=== PATIENT | female | born 1990 | race Caucasian/White ===

== ENCOUNTER 2019-10-05 06:43 | Inpatient (IN) | payer OTHER ==
[~2019-10-05] VITALS: Ht 175.3 cm; Wt 95.5 kg
[~2019-10-05 06:43] MED LIST: AMOX125S7 PO; NORG1TAB70 PO; OXYC1TAB15 PO
[2019-10-05] MEDS ORDERED: IV NORMAL SALINE 1000ML BAG 1,000 ML IV ONE (07:00)
--- NOTE | 2019-10-05 07:54 | RAD ---
Exam: VENOUS LOWER EXTREMITY LEFT Indication: Reason: LLE pain/swelling / Spl. Instructions: / History: Technique: Color-flow and pulsed wave duplex ultrasound with compression of venous structures of the left lower extremity. Comparison: None Available. Findings: Duplex ultrasound with compression of the deep venous structures of the left lower extremity from the common femoral vein through the popliteal vein is negative for DVT. The posterior tibial and peroneal veins are segmentally visualized and patent where seen. Normal venous waveforms and augmentation are noted throughout. Impression: No evidence for DVT in the left lower extremity. Electronically signed by: Andi Hylton MD (10/05/2019 7:51 AM) [id number]
[2019-10-05 07:56] LABS: BASO # 0.1 x10^3/uL (0.0-0.2); BASO % 1 % (0-3); EOS # 0.1 x10^3/uL (0.0-0.7); EOS % 1 % (0-3); HEMATOCRIT 35.2 % (36.0-47.0); HEMOGLOBIN 11.8 g/dL (12.0-15.5); LYMPH # 2.5 x10^3/uL (1.0-4.8); LYMPH % 21 % (24-48); MEAN CORPUSCULAR HEMOGLOBIN 30 pg (25-35); MEAN CORPUSCULAR HGB CONC 33 g/dL (31-37); MEAN CORPUSCULAR VOLUME 88 fL (79-100); MONO # 0.6 x10^3/uL (0.0-1.1); MONO % 5 % (0-9); NEUT % 73 % (31-73); PLATELET COUNT 140 x10^3/uL (140-400); RED BLOOD COUNT 3.98 x10^6/uL (3.50-5.40); RED CELL DISTRIBUTION WIDTH 12.2 % (11.5-14.5); WHITE BLOOD COUNT 12.3 x10^3/uL (4.0-11.0)
[2019-10-05 08:07] LABS: CALCIUM 7.5 mg/dL (8.5-10.1); CREATININE 1.1 mg/dL (0.6-1.0); GFR 57.9; POTASSIUM 3.4 mmol/L (3.5-5.1)
--- NOTE | 2019-10-05 08:07 | PHYS DOC ---
Past Medical History Past Medical History: No Pertinent History Additional Past Surgical Histo: Left ACL repair Smoking Status: Never Smoker Alcohol Use: Occasionally Drug Use: None General Adult EDM: Chief Complaint: SHORTNESS OF BREATH HPI: HPI: Patient is a 29 year old female presents via EMS with report of sudden shortness of breath upon waking this morning. Reports she has noticed some dyspnea with exertion over the past few days. Patient reports some left knee swelling x 2-3 weeks which she attributes to aggravation of old injury. Reports history of ACL repair 15 years ago. Patient reports she did notice left calf swelling and pain yesterday. Patient reports she recently traveled to [place] (over the last weekend). Denies any fever or chills. Denies trauma. Denies . Patient does report feeling unwell with some aching chest discomfort. Patient reports she has a MRI scheduled to evaluate her knee in the next few days. Reports history of control use. Denies known recent exposure to COVID-19. Denies history or family history of PE/DVT. EMS reports upon their arrival, patient noted to be hypotensive- down to 70s systolic. EMS reports giving IVF bolus with interval improvement. Review of Systems: Review of Systems: Constitutional: Denies fever or chills Eyes: Denies redness or eye pain HENT: Denies nasal congestion or sore throat Respiratory: Denies cough; reports shortness of breath and dyspnea with exertion Cardiovascular: Reports chest pain; denies palpitations GI: Denies abdominal pain, nausea, or vomiting : Denies dysuria or hematuria Musculoskeletal: Denies back pain; reports left leg swelling and left knee pain Integument: Denies rash or skin lesions Neurologic: Denies headache, focal weakness or sensory changes Complete systems were reviewed and found to be within normal limits, except as documented in this note. Heart Score: HEART Score for Chest Pain: HEART Score for Chest Pain Response (Comments) Value History Moderately Suspicious 1 ECG Normal 0 Age < 45 0 Risk Factors No Risk Factors 0 Troponin >1-<3x Normal Limit 1 Total 2 Risk Factors: Risk Factors: DM, Current or recent (<one month) smoker, HTN, HLP, family history of CAD, obesity. Risk Scores: Score 0 - 3: 2.5% MACE over next 6 weeks - Discharge Home Score 4 - 6: 20.3% MACE over next 6 weeks - Admit for Clinical Observation Score 7 - 10: 72.7% MACE over next 6 weeks - Early Invasive Strategies Current Medications: Current Medications Medications (Trade) Dose Ordered Sig/Simon Start Time Stop Time Status Last Admin Dose Admin Sodium Chloride 1,000 ml @ 1,000 mls/hr 1X ONCE 10/05/19 07:00 10/05/19 07:59 DC 10/05/19 07:28 1,000 MLS/HR Allergies: Allergies: Allergies Coded Allergies Type Severity Reaction Last Updated Verified cephalexin Allergy Intermediate Hives 10/13/15 Yes Physical Exam: PE: Constitutional: Well developed, well nourished, no acute distress, non-toxic appearance HENT: Normocephalic, atraumatic Eyes: Conjunctiva normal, no discharge Neck: Normal range of motion, no tenderness, supple Lungs & Thorax: No respiratory distress, equal chest rise and fall Abdomen: Soft, no tenderness Skin: Warm, dry, no erythema, no rash Back: No tenderness, no CVA tenderness Extremities: No tenderness, ROM intact, 1+ edema to LLE, knee stable, no calf tenderness Neurologic: Alert and oriented X 3, no focal deficits noted Psychologic: Affect normal, judgment normal Current Patient Data: Labs: Laboratory Tests Test 10/05/19 07:20 White Blood Count 12.3 x10^3/uL (4.0-11.0) H Red Blood Count 3.98 x10^6/uL (3.50-5.40) Hemoglobin 11.8 g/dL (12.0-15.5) L Hematocrit 35.2 % (36.0-47.0) L Mean Corpuscular Volume 88 fL (79-100) Mean Corpuscular Hemoglobin 30 pg (25-35) Mean Corpuscular Hemoglobin Concent 33 g/dL (31-37) Red Cell Distribution Width 12.2 % (11.5-14.5) Platelet Count 140 x10^3/uL (140-400) Neutrophils (%) (Auto) 73 % (31-73) Lymphocytes (%) (Auto) 21 % (24-48) L Monocytes (%) (Auto) 5 % (0-9) Eosinophils (%) (Auto) 1 % (0-3) Basophils (%) (Auto) 1 % (0-3) Neutrophils # (Auto) 9.0 x10^3/uL (1.8-7.7) H Lymphocytes # (Auto) 2.5 x10^3/uL (1.0-4.8) Monocytes # (Auto) 0.6 x10^3/uL (0.0-1.1) Eosinophils # (Auto) 0.1 x10^3/uL (0.0-0.7) Basophils # (Auto) 0.1 x10^3/uL (0.0-0.2) Laboratory Tests 10/05/19 07:20 Vital Signs: Vital Signs Date Time Temp Pulse Resp B/P (MAP) Pulse Ox O2 Delivery O2 Flow Rate FiO2 10/05/19 06:54 98.5 68 18 99/53 (68) 94 Room Air 98.5 EKG: EKG: @0840 NSR at 83bpm, NO ST elevation, QRS 90ms, QT/QTc 384/452ms Radiology/Procedures: Radiology/Procedures: PROCEDURE: VENOUS LOWER EXTREMITY LEFT Indication: Reason: LLE pain/swelling / Spl. Instructions: / History: Technique: Color-flow and pulsed wave duplex ultrasound with compression of venous structures of the left lower extremity. Comparison: None Available. Findings: Duplex ultrasound with compression of the deep venous structures of the left lower extremity from the common femoral vein through the popliteal vein is negative for DVT. The posterior tibial and peroneal veins are segmentally visualized and patent where seen. Normal venous waveforms and augmentation are noted throughout. Impression: No evidence for DVT in the left lower extremity. Electronically signed by: Andi Hylton MD (10/05/2019 7:51 AM) [id number] PROCEDURE: CT ANGIOGRAPHY CHEST EXAM: CT angiography of the chest with intravenous contrast. HISTORY: Shortness of air. TECHNIQUE: Computed tomographic images of the chest were obtained following the administration of intravenous contrast according to angiography protocol. Multiplanar reformatting was performed and three dimensional maximum intensity projection images were obtained. *One or more of the following individualized dose reduction techniques were utilized for this examination: 1. Automated exposure control. 2. Adjustment of the mA and/or kV according to patient size. 3. Use of iterative reconstruction technique. COMPARISON: None. FINDINGS: There are right main and bilateral upper and lower lobe and right middle lobe pulmonary emboli. No saddle embolus is seen. There is no evidence of right heart strain. The heart is normal in size. The aorta is normal in caliber. There is no lymphadenopathy. There is no pneumothorax or pleural effusion. There is no infiltrate or suspicious pulmonary nodule. There is no acute finding involving the upper abdomen. There is no suspicious osseous lesion. IMPRESSION: Extensive bilateral pulmonary emboli. No saddle embolus or right heart strain is seen. Findings were discussed with Dr. Haley in the ED at 0900 hours on 10/05/2019. Course & Med Decision Making: Course & Med Decision Making Pertinent Labs and Imaging studies reviewed. (See chart for details) Patient presents via EMS with report of sudden shortness of air with history of recent travel to [place]. Patient also complaining of some chest discomfort. Patient immediately placed and negative pressure room. COVID precautions utilized. EKG stable. Labs obtained and posted to chart. Troponin slightly elevated. Aspirin provided. Lactic acid elevated. UA with signs of UTI. Empiric antibiotic initiated. Patient also complaining of left lower extremity swelling. Venous Doppler negative. CTA chest with bilateral PEs noted. Lovenox initiated. COVID testing pending. Patient requiring admission for further evaluation and treatment. Discussed with Dr. Mckeon (hospitalist) who is in agreement with admission. Discussed findings and plan with patient, who acknowledges understanding and agreement. COVID-19 CRITERIA: The patient was evaluated during the global COVID-19 pandemic, and that diagnosis was suspected/considered upon their initial presentation. Their evaluation, treatment and testing was consistent with current guidelines for patients who present with complaints or symptoms that may be related to COVID-19. Dragon Disclaimer: Dragon Disclaimer: This electronic medical record was generated, in whole or in part, using a voice recognition dictation system. Departure Departure Impression: Primary Impression: Pulmonary embolism Qualified Codes: I26.99 - Other pulmonary embolism without acute cor pulmonale Additional Impressions: Elevated troponin Hypomagnesemia Suspected COVID-19 virus infection Hx of hypotension Lactic acidosis Urinary tract infection Qualified Codes: N30.00 - Acute cystitis without hematuria Disposition: ADMITTED INPATIENT Admitting Physician: RADHA (Rafy) Condition: GUARDED Referrals: SARAH BEGUM (PCP) Justicifation of Admission Dx: Justifications for Admission: Justification of Admission Dx: Yes Comments: PE and Elevated troponin COVID-19 Assessment: COVID-19 Patient Risks: Age 65 or older: No Sign of co-morbidity: No Exp to person + for COVID: No Exp to PUI: No Travel from affected area: Yes Lower respiratory symptoms: Yes Fever: No PPE Use: Full PPE with N95 mask or PAPR: Yes Critical Care Time Critical care time was 30 minutes which includes time at bedside, spent in discussion of patient's care with specialists and/or family members, with interpretation of laboratory and/or radiological studies and is exclusive of procedures. PERC Rule for PE PERC Rule for PE PERC Rule for PE Response (Comments) Value Age > 50: No 0 HR > 100: No 0 Sa02 on room air <95%: Yes 1 Unilateral leg swelling: Yes 1 Hemoptysis: No 0 Recent surgery or trauma: No 0 Prior PE or DVT: No 0 Hormone use: Yes 1 Total 3 HALEY,PEDRO Botello DO Oct 05, 2019 08:07
[2019-10-05 08:14] LABS: ALBUMIN 2.4 g/dL (3.4-5.0); ALBUMIN/GLOBULIN RATIO 0.9 (1.0-1.7); MAGNESIUM 1.5 mg/dL (1.8-2.4); TOTAL BILIRUBIN 0.3 mg/dL (0.2-1.0)
[2019-10-05 08:20] LABS: CREATINE KINASE 27 U/L (26-192)
[2019-10-05 08:20] LABS: BILIRUBIN,URINE NEGATIVE (NEG); CLARITY,URINE CLEAR; COLOR,URINE AMBER; NITRITE,URINE POSITIVE (NEG); PH,URINE 5.5 (<5.0-8.0); PROTEIN,URINE NEGATIVE (NEG-TRACE); UROBILINOGEN,URINE 0.2 mg/dL (0.2 mg/dL)
[2019-10-05] MEDS ORDERED: IOHEXOL 350 MG/ML 100 ML VIAL. IV ONE (08:30)
[2019-10-05] MEDS ORDERED: CONTRAST GIVEN. MC PRN (08:30)
[2019-10-05] MEDS ORDERED: MAGNESIUM SULFATE 2GM 50 ML IV ONE (08:30)
[2019-10-05] MEDS ORDERED: ASPIRIN 325 MG TABLET PO ONE (08:30)
[2019-10-05 08:36] LABS: RBC,URINE 0 /HPF (0-2)
[2019-10-05 08:37] LABS: BACTERIA,URINE MANY /HPF (0-FEW); SQUAMOUS EPITHELIAL CELL,UR OCC /LPF
--- NOTE | 2019-10-05 09:13 | EKG ---
[facility] [address] [place] [address] Test Date: 2019-10-05 Test Time: 08:40:06 Pat Name: ADITHYA GEE Department: Room: Gender: F [employer] Driver: : 1990 Requested By: PEDRO HALEY Order Number: [id number] Reading MD: Alex Dwyer Measurements Intervals [place] Rate: 83 P: 51 [place]: 144 QRS: 71 QRSD: 90 T: 23 QT: 384 QTc: 452 Interpretive Statements SINUS RHYTHM Electronically Signed On 10-06-2019 16:38:46 CDT by Alex Dwyer
--- NOTE | 2019-10-05 09:16 | RAD ---
EXAM: CT angiography of the chest with intravenous contrast. HISTORY: Shortness of air. TECHNIQUE: Computed tomographic images of the chest were obtained following the administration of intravenous contrast according to angiography protocol. Multiplanar reformatting was performed and three dimensional maximum intensity projection images were obtained. *One or more of the following individualized dose reduction techniques were utilized for this examination: 1. Automated exposure control. 2. Adjustment of the mA and/or kV according to patient size. 3. Use of iterative reconstruction technique. COMPARISON: None. FINDINGS: There are right main and bilateral upper and lower lobe and right middle lobe pulmonary emboli. No saddle embolus is seen. There is no evidence of right heart strain. The heart is normal in size. The aorta is normal in caliber. There is no lymphadenopathy. There is no pneumothorax or pleural effusion. There is no infiltrate or suspicious pulmonary nodule. There is no acute finding involving the upper abdomen. There is no suspicious osseous lesion. IMPRESSION: Extensive bilateral pulmonary emboli. No saddle embolus or right heart strain is seen. Findings were discussed with Dr. Augustin in the ED at 0900 hours on 10/05/2019. FOR INTERNAL CODING PURPOSES RESULT CODE: (C) Electronically signed by: Jeanine Marshall MD (10/05/2019 9:13 AM) [id number]
[2019-10-05 09:21] LABS: LACTATE DEHYDROGENASE 151 U/L (81-234)
[2019-10-05] MEDS ORDERED: ONDANSETRON PF 4 MG/2 ML VIAL. IV PRN (09:30)
[2019-10-05] MEDS ORDERED: PIPERACILLIN/TAZOBACTAM 4.5 GM in IV NORMAL SALINE 100ML 100 ML IV ONE (09:30)
--- NOTE | 2019-10-05 10:59 | PDOC2 ---
KEEGAN ROOT GROUND SUPPORT AGENT 10/05/19 1058: CARDIAC CONSULT DATE OF CONSULT Date of Consult DATE: 10/05/19 TIME: 10:56 REASON FOR CONSULT Reason for Consult: Elevated trop, PE REFERRING PHYSICIAN Referring Physician: Dr. Mckeon SOURCE Source: Chart review, Patient HISTORY OF PRESENT ILLNESS HISTORY OF PRESENT ILLNESS This is a 29 yo female who presented secondary to shortness of breath and LLE edema. Troponin noted to be elevated, which prompted this consult. Patient traveled to [facility] over the weekend. On Wednesday, developed some shortness of breath. Progressively worsened. This morning, was significantly worse. Was so short of breath she was unable to stand. Called EMS. Also reports some swelling in her left knee for the last couple of weeks. This also progressively worsening and noted left calf to be swollen this morning. Has a history of ACL repair about 15 years ago. She denies any chest pain, palpitations, diaphoresis, or nausea/vomiting. PAST MEDICAL HISTORY Pulmonary: Asthma PAST SURGICAL HISTORY Past Surgical History: Tonsillectomy, Other (left ACL repair ) FAMILY HISTORY Family History: Diabetes SOCIAL HISTORY Smoke: No ALCOHOL: occassional Drugs: None Lives: Alone CURRENT MEDICATIONS CURRENT MEDICATIONS Current Medications Medications (Trade) Dose Ordered Sig/Simon Route PRN Reason Start Time Stop Time Status Last Admin Dose Admin Sodium Chloride 1,000 ml @ 1,000 mls/hr 1X ONCE IV 10/05/19 07:00 10/05/19 07:59 DC 10/05/19 07:28 Aspirin (Lyn Aspirin) 325 mg 1X ONCE PO 10/05/19 08:30 10/05/19 08:31 DC 10/05/19 08:41 Magnesium Sulfate 50 ml @ 25 mls/hr 1X ONCE IV 10/05/19 08:30 10/05/19 10:29 DC 10/05/19 09:08 Iohexol (Omnipaque 350 Mg/ml) 90 ml 1X ONCE IV 10/05/19 08:30 10/05/19 08:31 DC 10/05/19 08:53 Piperacillin Sod/ Tazobactam Sod 4.5 gm/Sodium Chloride 100 ml @ 200 mls/hr 1X ONCE IV 10/05/19 09:30 10/05/19 09:59 DC 10/05/19 09:21 Enoxaparin Sodium (Lovenox 100mg Syringe) 100 mg 1X ONCE SQ 10/05/19 09:15 10/05/19 09:16 DC 10/05/19 09:39 ALLERGIES ALLERGIES: Coded Allergies: cephalexin (Verified Allergy, Intermediate, Hives, 10/05/19) Has tolerated amoxicillin ROS Review of System 14 point ROS conducted with pertinent positives note above in HPI PHYSICAL EXAM General: Alert, Oriented X3, Cooperative, No acute distress HEENT: Atraumatic, Mucous membr. moist/pink Lungs: Clear to auscultation Heart: Regular rate, Normal S1, Normal S2 Abdomen: Soft, No tenderness Extremities: No edema, Normal pulses Skin: No breakdown, No significant lesion Neuro: Normal speech, Sensation intact Psych/Mental Status: Mental status NL, Mood NL MUSCULOSKELETAL: No joint tenderness VITALS/I&O VITALS/I&O: Vital Signs Date Time Temp Pulse Resp B/P (MAP) Pulse Ox O2 Delivery O2 Flow Rate FiO2 10/05/19 08:17 79 16 101/61 (74) 95 Room Air 10/05/19 06:54 98.5 98.5 LABS Lab: Laboratory Tests Test 10/05/19 07:20 10/05/19 07:54 10/05/19 08:00 10/05/19 08:10 White Blood Count 12.3 x10^3/uL (4.0-11.0) H Red Blood Count 3.98 x10^6/uL (3.50-5.40) Hemoglobin 11.8 g/dL (12.0-15.5) L Hematocrit 35.2 % (36.0-47.0) L Mean Corpuscular Volume 88 fL (79-100) Mean Corpuscular Hemoglobin 30 pg (25-35) Mean Corpuscular Hemoglobin Concent 33 g/dL (31-37) Red Cell Distribution Width 12.2 % (11.5-14.5) Platelet Count 140 x10^3/uL (140-400) Neutrophils (%) (Auto) 73 % (31-73) Lymphocytes (%) (Auto) 21 % (24-48) L Monocytes (%) (Auto) 5 % (0-9) Eosinophils (%) (Auto) 1 % (0-3) Basophils (%) (Auto) 1 % (0-3) Neutrophils # (Auto) 9.0 x10^3/uL (1.8-7.7) H Lymphocytes # (Auto) 2.5 x10^3/uL (1.0-4.8) Monocytes # (Auto) 0.6 x10^3/uL (0.0-1.1) Eosinophils # (Auto) 0.1 x10^3/uL (0.0-0.7) Basophils # (Auto) 0.1 x10^3/uL (0.0-0.2) Sodium Level 141 mmol/L (136-145) Potassium Level 3.4 mmol/L (3.5-5.1) L Chloride Level 106 mmol/L (98-107) Carbon Dioxide Level 27 mmol/L (21-32) Anion Gap 8 (6-14) Blood Urea Nitrogen 11 mg/dL (7-20) Creatinine 1.1 mg/dL (0.6-1.0) H Estimated GFR (Cockcroft-Gault) 57.9 BUN/Creatinine Ratio 10 (6-20) Glucose Level 118 mg/dL (70-99) H Calcium Level 7.5 mg/dL (8.5-10.1) L Magnesium Level 1.5 mg/dL (1.8-2.4) L Ferritin 83 ng/mL (8-252) Total Bilirubin 0.3 mg/dL (0.2-1.0) Aspartate Amino Transferase (AST) 13 U/L (15-37) L Alanine Aminotransferase (ALT) 17 U/L (14-59) Alkaline Phosphatase 59 U/L (46-116) Lactate Dehydrogenase 151 U/L (81-234) Creatine Kinase 27 U/L (26-192) Creatine Kinase MB (Mass) 0.5 ng/mL (0.0-3.6) Creatine Kinase MB Relative Index % (0-4) Troponin I Quantitative 0.100 ng/mL (0.000-0.055) NM-Vum-A-Type Natriuretic Peptide 76 pg/mL (0-124) Total Protein 5.0 g/dL (6.4-8.2) L Albumin 2.4 g/dL (3.4-5.0) L Albumin/Globulin Ratio 0.9 (1.0-1.7) L Urine Collection Type Unknown Urine Color Blank Urine Clarity Clear Urine pH 5.5 (<5.0-8.0) Urine Specific [place] 1.025 (1.000-1.030) Urine Protein Negative mg/dL (NEG-TRACE) Urine Glucose (UA) Negative mg/dL (NEG) Urine Ketones (Stick) Negative mg/dL (NEG) Urine Blood Negative (NEG) Urine Nitrite Positive (NEG) Urine Bilirubin Negative (NEG) Urine Urobilinogen Dipstick 0.2 mg/dL (0.2 mg/dL) Urine Leukocyte Esterase Negative (NEG) Urine RBC 0 /HPF (0-2) Urine WBC 5-10 /HPF (0-4) Urine Squamous Epithelial Cells Occ /LPF Urine Bacteria Many /HPF (0-FEW) Lactic Acid Level 2.1 mmol/L (0.4-2.0) H POC Urine HCG, Qualitative Hcg negative (Negative) Laboratory Tests 10/05/19 07:20 Laboratory Tests 10/05/19 07:20 ASSESSMENT/PLAN ASSESSMENT/PLAN 1. Dyspnea in setting of PE; CTA with extensive bilateral PE. Received treatment dose Lovenox 2. Mild troponin elevation; Most probably type II, demand ischemia in setting of above. 3. Hypokalemia, hypomagnesemia; replaced 4. Leukocytosis, lactic acidosis 5. UTI 6. Oral contraceptive use Recommendations Trend troponin Lipids, TSH Echo to assess LV systolic function, RV dilation AC as per pulm Discontinue oral contraceptives. Consider hypercoagulable workup. Supportive care MELISSA SOLITARIO MD 10/05/19 1732: CARDIAC CONSULT ASSESSMENT/PLAN ASSESSMENT/PLAN Patient seen and evaluated Agree with our podiatric assistant assessment and plan. Bilateral PE. Anticoagulation as per the pulmonary service. Will check an echo to assess right and left side function. Discontinue oral contraceptives. Outpatient hypercoagulability work-up as per pulmonary Hypokalemia and hypomagnesemia being replaced. Minimally elevated troponin peak of 0.462 in the setting of severe bilateral PEs. Continue treatment as above. Echo to check LV function and wall motion Thank you for allowing us to participate in the care of your patient. KEEGAN ROOT APRN Oct 05, 2019 10:58 MELISSA SOLITARIO MD Oct 05, 2019 17:32
[2019-10-05 11:41] LABS: CHOLESTEROL/HDL RATIO 3.4
--- NOTE | 2019-10-05 13:16 | CONS ---
DATE OF CONSULTATION: PULMONARY CONSULTATION ATTENDING PHYSICIAN: Glo Mckeon MD REASON FOR CONSULTATION: Bilateral pulmonary embolism. HISTORY OF PRESENT ILLNESS: The patient is a 29-year-old female who has no history of tobacco use or asthma. She was doing very well. She recently arrived from [place]. It was a nonstop flight. She came on Wednesday. She lives on the third floor of her apartment. She started experiencing exertional dyspnea when she was walking up 3 flights of stairs. She had no chest pain, no syncopal episode. No headaches. No nausea, vomiting or diarrhea. The patient had some left knee swelling about 2-3 weeks ago, which she attributed to aggravation of an old injury. She had ACL repair 15 years ago. She said when she was in [place], she did not go to any casinos. She stayed with her friend and they ordered food online as well. She was evaluated in the ER. Initially, she was thought as COVID suspect. She was kept in the COVID isolation; however, venous Doppler was performed, which did not reveal any DVT, but CTA chest was performed. I have reviewed the CT chest. She has extensive bilateral pulmonary emboli. They were seen in the right main pulmonary artery, and bilateral upper and lower lobes and right middle lobe. There was no evidence of right heart strain. There was no evidence of pulmonary infarction. When she arrived, she was initially hypotensive, blood pressure 95 systolic, but did respond to IV fluids. She is currently on room air and saturations are 97%. She has no family history of thromboembolic disease. She is on control pills. PAST MEDICAL HISTORY: Essentially unremarkable. PAST SURGICAL HISTORY: Left ACL repair. SOCIAL HISTORY: Nonsmoker, nonalcoholic. ALLERGIES: CEPHALEXIN. MEDICATIONS: Reviewed as listed in the MRAD. REVIEW OF SYSTEMS: Twelve-point system obtained. Pertinent positives discussed in my present illness, otherwise noncontributory. All systems that were negative were reviewed as well. FAMILY HISTORY: No history of hypercoagulable state. PHYSICAL EXAMINATION: VITAL SIGNS: Reviewed, they are stable. Pulse ox 97% on room air. NECK: Supple. HEENT: Visual exam performed due to COVID pandemia. SKIN: No obvious skin rash. EXTREMITIES: No obvious leg edema. LABORATORY DATA: Reviewed. White cell count 12.3, hemoglobin 11.8 and platelets are 140. Her TSH 4.8. Her troponin level 0.1. IMPRESSION: 1. Acute pulmonary embolism in a patient whose risk factor is the use of control pill. She also had a nonstop flight from [place] to [facility]. However, this seems to be the less likely risk factor then compared to her use of control pills. No family history of thromboembolic disease. She is hemodynamically stable at present. As such, she does not need any thrombolytic treatment. Venous Dopplers are negative. RECOMMENDATIONS: 1. The patient received Lovenox in the Emergency Room. She could be resumed with Eliquis tomorrow. 2. If she remains hemodynamically stable, she could even be discharged in the next 24 hours. 3. She will need minimum of 3 months of anticoagulation. 4. She needs to discontinue control pills. 5. We will repeat a CTA chest in 6-8 weeks. 6. We would recommend obtaining hypercoagulable panel as an outpatient. Discussed with ER physician. We will follow along with you. CRISPIN MORALES MD DR: TATY/rich JOB#: [id number] / [id number] [place]
[2019-10-05] MEDS ORDERED: POTASSIUM CHLORIDE 20 MEQ TABLET.ER. PO ONE (14:00)
[2019-10-05 14:23] VITALS: BP 104/65
--- NOTE | 2019-10-05 15:39 | PDOC1 ---
History and Physical Date of Admission Date of Admission DATE: 10/05/19 TIME: 15:27 Source Source: Chart review, Patient History of Present Illness History of Present Illness MS. Britt is a 29 year old female presents via EMS with report of sudden shortness of breath upon waking this morning. EMS noted she was hypotensive on arrival in 70's Reports she has noticed some dyspnea with exertion over the past few days. Patient reports some left knee swelling x 2-3 weeks which she attributes to aggravation of old injury. Her left calm was very tight and swollen last night and this AM and this is imrpvoed after lovenox given. Reports history of ACL repair 15 years ago and recurrent pain. She recently traveled to [place] (over the last weekend), did not venture out, stayed at a private residence, did not go out for food. Denies any fever or chills. Denies trauma. Denies . Patient does report feeling unwell with some aching chest discomfort. Patient reports she has a MRI scheduled to evaluate her knee in the next few days. Reports history of control use. Past Medical History Pulmonary: Asthma Psych: No pertinent hx Musculoskeletal: Osteoarthritis (left knee, post ligament tear) Rheumatologic: No pertinent hx ENT: No pertinent hx Renal/: No pertinent hx Endocrine: No pertinent hx Dermatology: No pertinent hx Past Surgical History Past Surgical History: Tonsillectomy, Other (left ACL repair ) Family History Family History: Diabetes Social History Smoke: No ALCOHOL: occassional Drugs: None Current Problem List Problem List Problems Medical Problems: (1) Elevated troponin Status: Acute (2) Hx of hypotension Status: Acute (3) Hypomagnesemia Status: Acute (4) Lactic acidosis Status: Acute (5) Pulmonary embolism Status: Acute (6) Suspected COVID-19 virus infection Status: Acute (7) Urinary tract infection Status: Acute Current Medications Current Medications Current Medications Sodium Chloride 1,000 ml @ 1,000 mls/hr 1X ONCE IV Last administered on 10/05/19at 07:28; Start 10/05/19 at 07:00; Stop 10/05/19 at 07:59; Status DC Aspirin (Lyn Aspirin) 325 mg 1X ONCE PO Last administered on 10/05/19at 08:41; Start 10/05/19 at 08:30; Stop 10/05/19 at 08:31; Status DC Magnesium Sulfate 50 ml @ 25 mls/hr 1X ONCE IV Last administered on 10/05/19at 09:08; Start 10/05/19 at 08:30; Stop 10/05/19 at 10:29; Status DC Iohexol (Omnipaque 350 Mg/ml) 90 ml 1X ONCE IV Last administered on 10/05/19at 08:53; Start 10/05/19 at 08:30; Stop 10/05/19 at 08:31; Status DC Info (CONTRAST GIVEN -- Rx MONITORING) 1 each PRN DAILY PRN MC SEE COMMENTS; Start 10/05/19 at 08:30; Stop 10/07/19 at 08:29 Piperacillin Sod/ Tazobactam Sod 4.5 gm/Sodium Chloride 100 ml @ 200 mls/hr 1X ONCE IV Last administered on 10/05/19at 09:21; Start 10/05/19 at 09:30; Stop 10/05/19 at 09:59; Status DC Enoxaparin Sodium (Lovenox 100mg Syringe) 100 mg 1X ONCE SQ Last administered on 10/05/19at 09:39; Start 10/05/19 at 09:15; Stop 10/05/19 at 09:16; Status DC Ondansetron HCl (Zofran) 4 mg PRN Q8HRS PRN IV NAUSEA/VOMITING; Start 10/05/19 at 09:30; Stop 10/06/19 at 09:29 Potassium Chloride (Klor-Con) 40 meq 1X ONCE PO Last administered on 10/05/19at 14:43; Start 10/05/19 at 14:00; Stop 10/05/19 at 14:01; Status DC Active Scripts Active Reported Ortho Tri-Cyclen (Norgestimate-Ethinyl Estradiol) 1 Each Tablet 1 Tab PO DAILY Allergies Allergies: Coded Allergies: cephalexin (Verified Allergy, Intermediate, Hives, 10/05/19) Has tolerated amoxicillin ROS General: YES: Chills, Fatigue PSYCHOLOGICAL ROS: No: Anxiety, Behavioral Disorder, Concentration difficultie, Decreased libido, Depression, Disorientation, Hallucinations, Hostility, Irritablity, Memory difficulties, Mood Swings, Obsessive thoughts, Physical abuse, Sexual abuse, Sleep disturbances, Suicidal ideation, Other Eyes: No Blurry vision, No Decreased vision, No Double vision, No Dry eyes, No Excessive tearing, No Eye Pain, No Itchy Eyes, No Loss of vision, No Photophobia, No Scotomata, No Uses contacts, No Uses glasses, No Other HEENT: No: Heacaches, Visual Changes, Hearing change, Nasal congestion, Nasal discharge, Oral lesions, Sinus pain, Sore Throat, Epistaxis, Sneezing, Snoring, Tinnitus, Vertigo, Vocal changes, Other Respiratory: YES: Shortness of breath, Tachypnea; No: Cough, Hemoptysis, Orthopnea, Pleuritic Pain, Sputum Changes, Stridor, Wheezing, Other Cardiovascular: yes Edema (to left calf this AM); No Chest Pain, No Palpitations, No Orthopnea, No Paroxysmal Noc. Dyspnea, No Lt Headedness, No Other Gastrointestinal: No Nausea, No Vomiting, No Abdominal Pain, No Diarrhea, No Constipation, No Melena, No Hematochezia, No Other Genitourinary: No Dysuria, No Frequency, No Incontinence, No Hematuria, No Retention, No Discharge, No Urgency, No Pain, No Flank Pain, No Other, No , No , No , No , No , No , No Musculoskeletal: Yes Joint Stiffness; No Gait Disturbance, No Joint Pain, No Joint Swelling, No Muscle Pain, No Muscular Weakness, No Pain In:, No Swelling In:, No Other Neurological: No Behavorial Changes, No Bowel/Bladder ControlChng, No Confusion, No Dizziness, No Gait Disturbance, No Headaches, No Impaired Coord/balance, No Memory Loss, No Numbness/Tingling, No Seizures, No Speech Problems, No Tremors, No Visual Changes, No Weakness, No Other Skin: No Dry Skin, No Eczema, No Hair Changes, No Lumps, No Mole Changes, No Mottling, No Nail Changes, No Pruritus, No Rash, No Skin Lesion Changes, No Other, No Acne Physical Exam General: Alert, Oriented X3, Cooperative, mild distress HEENT: PERRLA, Mucous membr. moist/pink Heart: no gallops, no murmurs Abdomen: Normal bowel sounds, Soft Extremities: No clubbing, Other (left knee painful, poor ROM, prior surg from jogging) Skin: No rashes Neuro: Normal speech Psych/Mental Status: Mental status NL, Mood NL Vitals Vitals Vital Signs Date Time Temp Pulse Resp B/P (MAP) Pulse Ox O2 Delivery O2 Flow Rate FiO2 6/11/20 14:23 98.1 88 16 104/65 (78) 100 Room Air 98.1 Labs Labs Laboratory Tests Test 10/05/19 07:20 10/05/19 07:54 10/05/19 08:00 10/05/19 08:10 White Blood Count 12.3 x10^3/uL (4.0-11.0) Red Blood Count 3.98 x10^6/uL (3.50-5.40) Hemoglobin 11.8 g/dL (12.0-15.5) Hematocrit 35.2 % (36.0-47.0) Mean Corpuscular Volume 88 fL (79-100) Mean Corpuscular Hemoglobin 30 pg (25-35) Mean Corpuscular Hemoglobin Concent 33 g/dL (31-37) Red Cell Distribution Width 12.2 % (11.5-14.5) Platelet Count 140 x10^3/uL (140-400) Neutrophils (%) (Auto) 73 % (31-73) Lymphocytes (%) (Auto) 21 % (24-48) Monocytes (%) (Auto) 5 % (0-9) Eosinophils (%) (Auto) 1 % (0-3) Basophils (%) (Auto) 1 % (0-3) Neutrophils # (Auto) 9.0 x10^3/uL (1.8-7.7) Lymphocytes # (Auto) 2.5 x10^3/uL (1.0-4.8) Monocytes # (Auto) 0.6 x10^3/uL (0.0-1.1) Eosinophils # (Auto) 0.1 x10^3/uL (0.0-0.7) Basophils # (Auto) 0.1 x10^3/uL (0.0-0.2) Sodium Level 141 mmol/L (136-145) Potassium Level 3.4 mmol/L (3.5-5.1) Chloride Level 106 mmol/L (98-107) Carbon Dioxide Level 27 mmol/L (21-32) Anion Gap 8 (6-14) Blood Urea Nitrogen 11 mg/dL (7-20) Creatinine 1.1 mg/dL (0.6-1.0) Estimated GFR (Cockcroft-Gault) 57.9 BUN/Creatinine Ratio 10 (6-20) Glucose Level 118 mg/dL (70-99) Calcium Level 7.5 mg/dL (8.5-10.1) Magnesium Level 1.5 mg/dL (1.8-2.4) Ferritin 83 ng/mL (8-252) Total Bilirubin 0.3 mg/dL (0.2-1.0) Aspartate Amino Transf (AST/SGOT) 13 U/L (15-37) Alanine Aminotransferase (ALT/SGPT) 17 U/L (14-59) Alkaline Phosphatase 59 U/L (46-116) Lactate Dehydrogenase 151 U/L (81-234) Creatine Kinase 27 U/L (26-192) Creatine Kinase MB (Mass) 0.5 ng/mL (0.0-3.6) Creatine Kinase MB Relative Index % (0-4) Troponin I Quantitative 0.100 ng/mL (0.000-0.055) YZ-Wuz-P-Type Natriuretic Peptide 76 pg/mL (0-124) Total Protein 5.0 g/dL (6.4-8.2) Albumin 2.4 g/dL (3.4-5.0) Albumin/Globulin Ratio 0.9 (1.0-1.7) Triglycerides Level 217 mg/dL (0-150) Cholesterol Level 138 mg/dL (0-200) LDL Cholesterol, Calculated 54 mg/dL (0-100) VLDL Cholesterol, Calculated 43 mg/dL (0-40) Non-HDL Cholesterol Calculated 97 mg/dL (0-129) HDL Cholesterol 41 mg/dL (40-60) Cholesterol/HDL Ratio 3.4 Thyroid Stimulating Hormone (TSH) 4.811 uIU/mL (0.358-3.74) Urine Collection Type Unknown Urine Color Blank Urine Clarity Clear Urine pH 5.5 (<5.0-8.0) Urine Specific [place] 1.025 (1.000-1.030) Urine Protein Negative mg/dL (NEG-TRACE) Urine Glucose (UA) Negative mg/dL (NEG) Urine Ketones (Stick) Negative mg/dL (NEG) Urine Blood Negative (NEG) Urine Nitrite Positive (NEG) Urine Bilirubin Negative (NEG) Urine Urobilinogen Dipstick 0.2 mg/dL (0.2 mg/dL) Urine Leukocyte Esterase Negative (NEG) Urine RBC 0 /HPF (0-2) Urine WBC 5-10 /HPF (0-4) Urine Squamous Epithelial Cells Occ /LPF Urine Bacteria Many /HPF (0-FEW) Lactic Acid Level 2.1 mmol/L (0.4-2.0) Bedside Urine HCG, Qualitative Hcg negative (Negative) Test 10/05/19 12:15 Lactic Acid Level 2.3 mmol/L (0.4-2.0) Troponin I Quantitative 0.462 ng/mL (0.000-0.055) Laboratory Tests Test 10/05/19 07:20 10/05/19 07:54 10/05/19 08:00 10/05/19 08:10 White Blood Count 12.3 x10^3/uL (4.0-11.0) Red Blood Count 3.98 x10^6/uL (3.50-5.40) Hemoglobin 11.8 g/dL (12.0-15.5) Hematocrit 35.2 % (36.0-47.0) Mean Corpuscular Volume 88 fL (79-100) Mean Corpuscular Hemoglobin 30 pg (25-35) Mean Corpuscular Hemoglobin Concent 33 g/dL (31-37) Red Cell Distribution Width 12.2 % (11.5-14.5) Platelet Count 140 x10^3/uL (140-400) Neutrophils (%) (Auto) 73 % (31-73) Lymphocytes (%) (Auto) 21 % (24-48) Monocytes (%) (Auto) 5 % (0-9) Eosinophils (%) (Auto) 1 % (0-3) Basophils (%) (Auto) 1 % (0-3) Neutrophils # (Auto) 9.0 x10^3/uL (1.8-7.7) Lymphocytes # (Auto) 2.5 x10^3/uL (1.0-4.8) Monocytes # (Auto) 0.6 x10^3/uL (0.0-1.1) Eosinophils # (Auto) 0.1 x10^3/uL (0.0-0.7) Basophils # (Auto) 0.1 x10^3/uL (0.0-0.2) Sodium Level 141 mmol/L (136-145) Potassium Level 3.4 mmol/L (3.5-5.1) Chloride Level 106 mmol/L (98-107) Carbon Dioxide Level 27 mmol/L (21-32) Anion Gap 8 (6-14) Blood Urea Nitrogen 11 mg/dL (7-20) Creatinine 1.1 mg/dL (0.6-1.0) Estimated GFR (Cockcroft-Gault) 57.9 BUN/Creatinine Ratio 10 (6-20) Glucose Level 118 mg/dL (70-99) Calcium Level 7.5 mg/dL (8.5-10.1) Magnesium Level 1.5 mg/dL (1.8-2.4) Ferritin 83 ng/mL (8-252) Total Bilirubin 0.3 mg/dL (0.2-1.0) Aspartate Amino Transf (AST/SGOT) 13 U/L (15-37) Alanine Aminotransferase (ALT/SGPT) 17 U/L (14-59) Alkaline Phosphatase 59 U/L (46-116) Lactate Dehydrogenase 151 U/L (81-234) Creatine Kinase 27 U/L (26-192) Creatine Kinase MB (Mass) 0.5 ng/mL (0.0-3.6) Creatine Kinase MB Relative Index % (0-4) Troponin I Quantitative 0.100 ng/mL (0.000-0.055) SY-Iih-D-Type Natriuretic Peptide 76 pg/mL (0-124) Total Protein 5.0 g/dL (6.4-8.2) Albumin 2.4 g/dL (3.4-5.0) Albumin/Globulin Ratio 0.9 (1.0-1.7) Triglycerides Level 217 mg/dL (0-150) Cholesterol Level 138 mg/dL (0-200) LDL Cholesterol, Calculated 54 mg/dL (0-100) VLDL Cholesterol, Calculated 43 mg/dL (0-40) Non-HDL Cholesterol Calculated 97 mg/dL (0-129) HDL Cholesterol 41 mg/dL (40-60) Cholesterol/HDL Ratio 3.4 Thyroid Stimulating Hormone (TSH) 4.811 uIU/mL (0.358-3.74) Urine Collection Type Unknown Urine Color Blank Urine Clarity Clear Urine pH 5.5 (<5.0-8.0) Urine Specific [place] 1.025 (1.000-1.030) Urine Protein Negative mg/dL (NEG-TRACE) Urine Glucose (UA) Negative mg/dL (NEG) Urine Ketones (Stick) Negative mg/dL (NEG) Urine Blood Negative (NEG) Urine Nitrite Positive (NEG) Urine Bilirubin Negative (NEG) Urine Urobilinogen Dipstick 0.2 mg/dL (0.2 mg/dL) Urine Leukocyte Esterase Negative (NEG) Urine RBC 0 /HPF (0-2) Urine WBC 5-10 /HPF (0-4) Urine Squamous Epithelial Cells Occ /LPF Urine Bacteria Many /HPF (0-FEW) Lactic Acid Level 2.1 mmol/L (0.4-2.0) Bedside Urine HCG, Qualitative Hcg negative (Negative) Test 10/05/19 12:15 Lactic Acid Level 2.3 mmol/L (0.4-2.0) Troponin I Quantitative 0.462 ng/mL (0.000-0.055) VTE Prophylaxis Ordered VTE Prophylaxis Devices: No VTE Pharmacological Prophylaxi: Yes Assessment/Plan Assessment/Plan pulmonary embolism troponin leak, strain, UTI, sepsis admit to tele r o [facility] stated, will complete, pt seen in isolation on covid unit, but there are other explainations for her complaint Justicifation of Admission Dx: Justifications for Admission: Justification of Admission Dx: Yes Comments: Pulmonary embolism, acute ALEXANDR ROCA MD Oct 05, 2019 15:38
[2019-10-05 19:00] VITALS: BP 102/65
[2019-10-05 23:00] VITALS: BP 110/68
[2019-10-06 03:00] VITALS: BP 100/61
[2019-10-06 04:24] LABS: BASO % 1 % (0-3); EOS # 0.2 x10^3/uL (0.0-0.7); EOS % 2 % (0-3); HEMATOCRIT 33.8 % (36.0-47.0); HEMOGLOBIN 11.7 g/dL (12.0-15.5); LYMPH # 3.4 x10^3/uL (1.0-4.8); LYMPH % 46 % (24-48); MEAN CORPUSCULAR HEMOGLOBIN 31 pg (25-35); MEAN CORPUSCULAR HGB CONC 35 g/dL (31-37); MEAN CORPUSCULAR VOLUME 88 fL (79-100); MONO # 0.5 x10^3/uL (0.0-1.1); MONO % 6 % (0-9); NEUT # 3.3 x10^3/uL (1.8-7.7); NEUT % 45 % (31-73); PLATELET COUNT 161 x10^3/uL (140-400); RED BLOOD COUNT 3.84 x10^6/uL (3.50-5.40); RED CELL DISTRIBUTION WIDTH 12.3 % (11.5-14.5); WHITE BLOOD COUNT 7.4 x10^3/uL (4.0-11.0)
[2019-10-06 04:45] LABS: ALBUMIN 2.3 g/dL (3.4-5.0); ALBUMIN/GLOBULIN RATIO 0.9 (1.0-1.7); CALCIUM 7.6 mg/dL (8.5-10.1); GFR 64.7; POTASSIUM 4.1 mmol/L (3.5-5.1); TOTAL BILIRUBIN 0.2 mg/dL (0.2-1.0)
[2019-10-06 07:00] VITALS: BP 92/56
--- NOTE | 2019-10-06 09:42 | PDOC ---
PULMONARY PROGRESS NOTES Subjective Feeling better today, denies SOA, remains on room air Vitals Vital Signs Date Time Temp Pulse Resp B/P (MAP) Pulse Ox O2 Delivery O2 Flow Rate FiO2 10/06/19 07:00 98.0 77 16 92/56 (68) 96 Room Air 98.0 ROS: No Nausea, No Chest Pain, No Abdominal Pain, No Increase Cough General: Alert Lungs: Clear Cardiovascular: S1, S2 Abdomen: Soft Neuro Exam: Alert, Oriented Extremities: No Edema Skin: Warm, Dry Labs Laboratory Tests Test 10/05/19 07:20 10/05/19 07:54 10/05/19 08:00 10/05/19 08:10 White Blood Count 12.3 x10^3/uL (4.0-11.0) Red Blood Count 3.98 x10^6/uL (3.50-5.40) Hemoglobin 11.8 g/dL (12.0-15.5) Hematocrit 35.2 % (36.0-47.0) Mean Corpuscular Volume 88 fL (79-100) Mean Corpuscular Hemoglobin 30 pg (25-35) Mean Corpuscular Hemoglobin Concent 33 g/dL (31-37) Red Cell Distribution Width 12.2 % (11.5-14.5) Platelet Count 140 x10^3/uL (140-400) Neutrophils (%) (Auto) 73 % (31-73) Lymphocytes (%) (Auto) 21 % (24-48) Monocytes (%) (Auto) 5 % (0-9) Eosinophils (%) (Auto) 1 % (0-3) Basophils (%) (Auto) 1 % (0-3) Neutrophils # (Auto) 9.0 x10^3/uL (1.8-7.7) Lymphocytes # (Auto) 2.5 x10^3/uL (1.0-4.8) Monocytes # (Auto) 0.6 x10^3/uL (0.0-1.1) Eosinophils # (Auto) 0.1 x10^3/uL (0.0-0.7) Basophils # (Auto) 0.1 x10^3/uL (0.0-0.2) Sodium Level 141 mmol/L (136-145) Potassium Level 3.4 mmol/L (3.5-5.1) Chloride Level 106 mmol/L (98-107) Carbon Dioxide Level 27 mmol/L (21-32) Anion Gap 8 (6-14) Blood Urea Nitrogen 11 mg/dL (7-20) Creatinine 1.1 mg/dL (0.6-1.0) Estimated GFR (Cockcroft-Gault) 57.9 BUN/Creatinine Ratio 10 (6-20) Glucose Level 118 mg/dL (70-99) Calcium Level 7.5 mg/dL (8.5-10.1) Magnesium Level 1.5 mg/dL (1.8-2.4) Ferritin 83 ng/mL (8-252) Total Bilirubin 0.3 mg/dL (0.2-1.0) Aspartate Amino Transf (AST/SGOT) 13 U/L (15-37) Alanine Aminotransferase (ALT/SGPT) 17 U/L (14-59) Alkaline Phosphatase 59 U/L (46-116) Lactate Dehydrogenase 151 U/L (81-234) Creatine Kinase 27 U/L (26-192) Creatine Kinase MB (Mass) 0.5 ng/mL (0.0-3.6) Creatine Kinase MB Relative Index % (0-4) Troponin I Quantitative 0.100 ng/mL (0.000-0.055) SO-Qel-F-Type Natriuretic Peptide 76 pg/mL (0-124) Total Protein 5.0 g/dL (6.4-8.2) Albumin 2.4 g/dL (3.4-5.0) Albumin/Globulin Ratio 0.9 (1.0-1.7) Triglycerides Level 217 mg/dL (0-150) Cholesterol Level 138 mg/dL (0-200) LDL Cholesterol, Calculated 54 mg/dL (0-100) VLDL Cholesterol, Calculated 43 mg/dL (0-40) Non-HDL Cholesterol Calculated 97 mg/dL (0-129) HDL Cholesterol 41 mg/dL (40-60) Cholesterol/HDL Ratio 3.4 Thyroid Stimulating Hormone (TSH) 4.811 uIU/mL (0.358-3.74) Urine Collection Type Unknown Urine Color Blank Urine Clarity Clear Urine pH 5.5 (<5.0-8.0) Urine Specific [place] 1.025 (1.000-1.030) Urine Protein Negative mg/dL (NEG-TRACE) Urine Glucose (UA) Negative mg/dL (NEG) Urine Ketones (Stick) Negative mg/dL (NEG) Urine Blood Negative (NEG) Urine Nitrite Positive (NEG) Urine Bilirubin Negative (NEG) Urine Urobilinogen Dipstick 0.2 mg/dL (0.2 mg/dL) Urine Leukocyte Esterase Negative (NEG) Urine RBC 0 /HPF (0-2) Urine WBC 5-10 /HPF (0-4) Urine Squamous Epithelial Cells Occ /LPF Urine Bacteria Many /HPF (0-FEW) Lactic Acid Level 2.1 mmol/L (0.4-2.0) Bedside Urine HCG, Qualitative Hcg negative (Negative) Test 10/05/19 08:44 10/05/19 12:15 10/05/19 15:25 10/06/19 04:10 Coronavirus (COVID-19)(PCR) Not detected (NOT DETECT.) Lactic Acid Level 2.3 mmol/L (0.4-2.0) Troponin I Quantitative 0.462 ng/mL (0.000-0.055) 0.398 ng/mL (0.000-0.055) White Blood Count 7.4 x10^3/uL (4.0-11.0) Red Blood Count 3.84 x10^6/uL (3.50-5.40) Hemoglobin 11.7 g/dL (12.0-15.5) Hematocrit 33.8 % (36.0-47.0) Mean Corpuscular Volume 88 fL (79-100) Mean Corpuscular Hemoglobin 31 pg (25-35) Mean Corpuscular Hemoglobin Concent 35 g/dL (31-37) Red Cell Distribution Width 12.3 % (11.5-14.5) Platelet Count 161 x10^3/uL (140-400) Neutrophils (%) (Auto) 45 % (31-73) Lymphocytes (%) (Auto) 46 % (24-48) Monocytes (%) (Auto) 6 % (0-9) Eosinophils (%) (Auto) 2 % (0-3) Basophils (%) (Auto) 1 % (0-3) Neutrophils # (Auto) 3.3 x10^3/uL (1.8-7.7) Lymphocytes # (Auto) 3.4 x10^3/uL (1.0-4.8) Monocytes # (Auto) 0.5 x10^3/uL (0.0-1.1) Eosinophils # (Auto) 0.2 x10^3/uL (0.0-0.7) Basophils # (Auto) 0.0 x10^3/uL (0.0-0.2) Sodium Level 141 mmol/L (136-145) Potassium Level 4.1 mmol/L (3.5-5.1) Chloride Level 109 mmol/L (98-107) Carbon Dioxide Level 25 mmol/L (21-32) Anion Gap 7 (6-14) Blood Urea Nitrogen 6 mg/dL (7-20) Creatinine 1.0 mg/dL (0.6-1.0) Estimated GFR (Cockcroft-Gault) 64.7 BUN/Creatinine Ratio 6 (6-20) Glucose Level 92 mg/dL (70-99) Calcium Level 7.6 mg/dL (8.5-10.1) Total Bilirubin 0.2 mg/dL (0.2-1.0) Aspartate Amino Transf (AST/SGOT) 13 U/L (15-37) Alanine Aminotransferase (ALT/SGPT) 15 U/L (14-59) Alkaline Phosphatase 64 U/L (46-116) Total Protein 5.0 g/dL (6.4-8.2) Albumin 2.3 g/dL (3.4-5.0) Albumin/Globulin Ratio 0.9 (1.0-1.7) Laboratory Tests Test 10/05/19 12:15 10/05/19 15:25 10/06/19 04:10 Lactic Acid Level 2.3 mmol/L (0.4-2.0) Troponin I Quantitative 0.462 ng/mL (0.000-0.055) 0.398 ng/mL (0.000-0.055) White Blood Count 7.4 x10^3/uL (4.0-11.0) Red Blood Count 3.84 x10^6/uL (3.50-5.40) Hemoglobin 11.7 g/dL (12.0-15.5) Hematocrit 33.8 % (36.0-47.0) Mean Corpuscular Volume 88 fL (79-100) Mean Corpuscular Hemoglobin 31 pg (25-35) Mean Corpuscular Hemoglobin Concent 35 g/dL (31-37) Red Cell Distribution Width 12.3 % (11.5-14.5) Platelet Count 161 x10^3/uL (140-400) Neutrophils (%) (Auto) 45 % (31-73) Lymphocytes (%) (Auto) 46 % (24-48) Monocytes (%) (Auto) 6 % (0-9) Eosinophils (%) (Auto) 2 % (0-3) Basophils (%) (Auto) 1 % (0-3) Neutrophils # (Auto) 3.3 x10^3/uL (1.8-7.7) Lymphocytes # (Auto) 3.4 x10^3/uL (1.0-4.8) Monocytes # (Auto) 0.5 x10^3/uL (0.0-1.1) Eosinophils # (Auto) 0.2 x10^3/uL (0.0-0.7) Basophils # (Auto) 0.0 x10^3/uL (0.0-0.2) Sodium Level 141 mmol/L (136-145) Potassium Level 4.1 mmol/L (3.5-5.1) Chloride Level 109 mmol/L (98-107) Carbon Dioxide Level 25 mmol/L (21-32) Anion Gap 7 (6-14) Blood Urea Nitrogen 6 mg/dL (7-20) Creatinine 1.0 mg/dL (0.6-1.0) Estimated GFR (Cockcroft-Gault) 64.7 BUN/Creatinine Ratio 6 (6-20) Glucose Level 92 mg/dL (70-99) Calcium Level 7.6 mg/dL (8.5-10.1) Total Bilirubin 0.2 mg/dL (0.2-1.0) Aspartate Amino Transf (AST/SGOT) 13 U/L (15-37) Alanine Aminotransferase (ALT/SGPT) 15 U/L (14-59) Alkaline Phosphatase 64 U/L (46-116) Total Protein 5.0 g/dL (6.4-8.2) Albumin 2.3 g/dL (3.4-5.0) Albumin/Globulin Ratio 0.9 (1.0-1.7) Medications Active Scripts Medications Dose Route/Sig Max Daily Dose Days Date Category Ortho Tri-Cyclen (Norgestimate-Ethinyl Estradiol) 1 Each Tablet 1 Tab PO DAILY 08/16/15 Reported Comments CTA chest IMPRESSION: Extensive bilateral pulmonary emboli. No saddle embolus or right heart strain is seen. BLE U/S Impression: No evidence for DVT in the left lower extremity. Impression . IMPRESSION: 1. Acute pulmonary embolism in a patient whose risk factor is the use of control pill. She also had a nonstop flight from [place] to [facility]. However, this seems to be the less likely risk factor then compared to her use of control pills. No family history of thromboembolic disease. She is hemodynamically stable at present. As such, she does not need any thrombolytic treatment. Venous Dopplers are negative. 2.ECHO pending Plan . RECOMMENDATIONS: will start eliquis today and D/C lovenox cont. anticoagulation for a minimum of 3 months discontinue control pills. We will repeat a CTA chest in 6-8 weeks and follow up with me in office on 12/06/2019 obtain hypercoagulable panel as an outpatient- RX provided ECHO pending follow cardiology recs OK to D/C this afternoon if continues to improve and no SOB, and if ok with other consults. CRISPIN MORALES MD Oct 06, 2019 09:42
--- NOTE | 2019-10-06 10:06 | CARD ---
MR#: [id number] Date of Study: 10/06/2019 Ordering Physician: KEEGAN ROOT, Referring Physician: KEEGAN ROOT, Tech: Jackie Perez ARPAN APPROVED REPORT EXAM: Two-dimensional and M-mode echocardiogram with Doppler and color Doppler. Other Information Quality : Good INDICATION Elevated Troponin 2D DIMENSIONS RVDd3.1 (2.9-3.5cm)Left Atrium(2D)3.3 (1.6-4.0cm) IVSd0.8 (0.7-1.1cm)Aortic Root(2D)2.9 (2.0-3.7cm) LVDd4.5 (3.9-5.9cm)LVOT Diameter2.0 (1.8-2.4cm) PWd0.9 (0.7-1.1cm)LVDs3.1 (2.5-4.0cm) FS (%) 31.6 %SV55.0 ml LVEF(%)59.7 (>50%) Aortic Valve AoV Peak Jc.113.2cm/sAoV VTI20.6cm AO Peak GR.5.1mmHgLVOT Peak Jc.99.8cm/s AO Mean GR.3mmHgAVA (VMAX)2.78cm2 MARTHA (VTI)3.10cm2 Mitral Valve MV E Hwibllnu52.3cm/sMV DECEL DMFU331ox MV A Gqzqafgs84.5cm/sE/A Ratio2.0 Tricuspid Valve TR P. Hckopmtg657lf/sRAP [id number] TR Peak Gr.[id number] Pulmonary Vein S1 Fxyssicl32.2cm/sD2 Xpatxvag64.2cm/s LEFT VENTRICLE The left ventricle is normal size. There is normal left ventricular wall thickness. The left ventricu lar systolic function is normal and the ejection fraction is within normal range. The Ejection Fracti on is 55-60%. There is normal LV segmental wall motion. The left ventricular diastolic function and f illing is normal for age. RIGHT VENTRICLE The right ventricle is normal size. The right ventricular systolic function is normal. ATRIA The left atrium size is normal. The right atrium size is normal. The interatrial septum is intact wit h no evidence for an atrial septal defect or patent foramen ovale as noted on 2-D or Doppler imaging. AORTIC VALVE The aortic valve is normal in structure and function. Doppler and Color Flow revealed no significant aortic regurgitation. There is no significant aortic valvular stenosis. MITRAL VALVE The mitral valve is normal in structure and function. There is no evidence of mitral valve prolapse. There is no mitral valve stenosis. Doppler and Color Flow revealed no mitral valve regurgitation note d. TRICUSPID VALVE The tricuspid valve is normal in structure and function. Doppler and Color Flow revealed trace tricus pid regurgitation. The PA pressure was estimated at 19 mmHg. There is no tricuspid valve stenosis. PULMONIC VALVE The pulmonary valve is normal in structure and function. Doppler and Color Flow revealed trace pulmon ic valvular regurgitation. There is no pulmonic valvular stenosis. GREAT VESSELS The aortic root is normal in size. The ascending aorta is normal in size. The IVC is normal in size a nd collapses >50% with inspiration. PERICARDIAL EFFUSION There is no evidence of significant pericardial effusion. Critical Notification Critical Value: No <Conclusion> The left ventricle is normal size. The left ventricular systolic function is normal and the ejection fraction is within normal range. The Ejection Fraction is 55-60%. Doppler and Color Flow revealed no significant aortic regurgitation. There is no significant aortic valvular stenosis. Doppler and Color Flow revealed no mitral valve regurgitation noted. Doppler and Color Flow revealed trace tricuspid regurgitation. The PA pressure was estimated at 19 mmHg. Signed by : Alex Dwyer MD Electronically Approved : 10/06/2019 10:05:40
--- NOTE | 2019-10-06 10:21 | PDOC ---
[facility] [facility] PROGRESS NOTE Chief Complaint Chief Complaint Pulmonary emboli History of Present Illness History of Present Illness 10/06/2019 Patient seen and examined Dr. Caba also saw the patient with me Discussed with case management Discussed with RN Plan is to stop the Lovenox and put her on Eliquis and discharge with close outpatient follow-up Vitals/I&O Vitals/I&O: Vital Signs Date Time Temp Pulse Resp B/P (MAP) Pulse Ox O2 Delivery O2 Flow Rate FiO2 10/06/19 08:30 Room Air 10/06/19 07:00 98.0 77 16 92/56 (68) 96 98.0 I & O 10/05/19 10/05/19 10/06/19 15:00 23:00 07:00 Intake Total 1050 ml 1000 ml 240 ml Balance 1050 ml 1000 ml 240 ml Physical Exam General: Alert, Oriented X3, Cooperative, mild distress Heart: Regular rate, Normal S1, Normal S2 Lungs: Clear Abdomen: Normal bowel sounds, Soft Extremities: No clubbing, Other (left knee painful, poor ROM, prior surg from jogging) Skin: No rashes Labs Labs: Laboratory Tests Test 10/05/19 12:15 10/05/19 15:25 10/06/19 04:10 Lactic Acid Level 2.3 mmol/L (0.4-2.0) Troponin I Quantitative 0.462 ng/mL (0.000-0.055) 0.398 ng/mL (0.000-0.055) White Blood Count 7.4 x10^3/uL (4.0-11.0) Red Blood Count 3.84 x10^6/uL (3.50-5.40) Hemoglobin 11.7 g/dL (12.0-15.5) Hematocrit 33.8 % (36.0-47.0) Mean Corpuscular Volume 88 fL (79-100) Mean Corpuscular Hemoglobin 31 pg (25-35) Mean Corpuscular Hemoglobin Concent 35 g/dL (31-37) Red Cell Distribution Width 12.3 % (11.5-14.5) Platelet Count 161 x10^3/uL (140-400) Neutrophils (%) (Auto) 45 % (31-73) Lymphocytes (%) (Auto) 46 % (24-48) Monocytes (%) (Auto) 6 % (0-9) Eosinophils (%) (Auto) 2 % (0-3) Basophils (%) (Auto) 1 % (0-3) Neutrophils # (Auto) 3.3 x10^3/uL (1.8-7.7) Lymphocytes # (Auto) 3.4 x10^3/uL (1.0-4.8) Monocytes # (Auto) 0.5 x10^3/uL (0.0-1.1) Eosinophils # (Auto) 0.2 x10^3/uL (0.0-0.7) Basophils # (Auto) 0.0 x10^3/uL (0.0-0.2) Sodium Level 141 mmol/L (136-145) Potassium Level 4.1 mmol/L (3.5-5.1) Chloride Level 109 mmol/L (98-107) Carbon Dioxide Level 25 mmol/L (21-32) Anion Gap 7 (6-14) Blood Urea Nitrogen 6 mg/dL (7-20) Creatinine 1.0 mg/dL (0.6-1.0) Estimated GFR (Cockcroft-Gault) 64.7 BUN/Creatinine Ratio 6 (6-20) Glucose Level 92 mg/dL (70-99) Calcium Level 7.6 mg/dL (8.5-10.1) Total Bilirubin 0.2 mg/dL (0.2-1.0) Aspartate Amino Transf (AST/SGOT) 13 U/L (15-37) Alanine Aminotransferase (ALT/SGPT) 15 U/L (14-59) Alkaline Phosphatase 64 U/L (46-116) Total Protein 5.0 g/dL (6.4-8.2) Albumin 2.3 g/dL (3.4-5.0) Albumin/Globulin Ratio 0.9 (1.0-1.7) Assessment and Plan Assessmemt and Plan Problems Medical Problems: (1) Elevated troponin Status: Acute (2) Hx of hypotension Status: Acute (3) Hypomagnesemia Status: Acute (4) Lactic acidosis Status: Acute (5) Pulmonary embolism Status: Acute (6) Suspected COVID-19 virus infection Status: Acute (7) Urinary tract infection Status: Acut Discharge Comment Review of Relevant I have reviewed the following items connie (where applicable) has been applied. Medications: Current Medications Medications (Trade) Dose Ordered Sig/Simon Route PRN Reason Start Time Stop Time Status Last Admin Dose Admin Potassium Chloride (Klor-Con) 40 meq 1X ONCE PO 10/05/19 14:00 10/05/19 14:01 DC 10/05/19 14:43 Enoxaparin Sodium (Lovenox 100mg Syringe) 100 mg Q12HR SQ 10/05/19 21:00 10/06/19 09:42 DC 10/06/19 08:28 Levofloxacin/ Dextrose 100 ml @ 100 mls/hr Q24H IV 10/05/19 21:00 10/05/19 20:16 Justicifation of Admission Dx: Justifications for Admission: Justification of Admission Dx: Yes JUVENCIO SERNA III DO Oct 06, 2019 10:21
[2019-10-06 11:26] VITALS: BP 94/62
[2019-10-06] MEDS ORDERED: APIXABAN 5 MG TABLET. PO SCH (13:00)
--- NOTE | 2019-10-06 13:41 | DS ---
DATE OF DISCHARGE: 10/06/2019 ADMISSION DIAGNOSIS: Pulmonary emboli. DISCHARGE DIAGNOSES: Resolving pulmonary emboli and incidental finding of a urinary tract infection. HOSPITAL COURSE: The patient is a pleasant middle-aged female who presented with shortness of breath, was noted to have pulmonary emboli on imaging. We admitted the patient, gave her subcutaneous Lovenox and consulted Dr. Caba today. I examined the patient with Dr. Caba. She is doing great. Dr. Caba recommended stopping the Lovenox and starting her on Eliquis for 3 months. DISPOSITION: Home. ACTIVITY: As tolerated. DIET: Low sodium. MEDICATIONS: Please see MRAD. TOTAL TIME: 34 minutes. VJL Miguelangel SERNA DO DR: CRISTOFER/rich JOB#: [id number] / [id number]
[2019-10-06 14:30] VITALS: BP 79/45
[2019-10-06 14:46] VITALS: BP 95/52
--- NOTE | 2019-10-06 14:58 | NUR ---
SW following for discharge planning. SW reviewed chart and spoke with RN. SW met with pt. Pt is a/o and reported no concerns at this time. Pt from home and will discharge today self-care. Pt stated her parents are on their way from [place] to be with her. Pt on room air and oral medications. No further SW needs identified at this time.
--- NOTE | 2019-10-06 14:59 | PDOC ---
PROGRESS NOTES Subjective Subjective Patient seen and examined Objective Objective Vital Signs Date Time Temp Pulse Resp B/P (MAP) Pulse Ox O2 Delivery O2 Flow Rate FiO2 10/06/19 11:26 98.5 74 15 94/62 (73) 97 Room Air 98.5 Intake and Output 10/06/19 07:00 Intake Total 2290 ml Balance 2290 ml Intake Oral 1240 ml IV Total 1050 ml Physical Exam Abdomen: Normal bowel sounds Heart: Regular rate General: mild distress Lungs: Clear to auscultation Assessment Assessment Problems Medical Problems: (1) Elevated troponin Status: Acute (2) Hx of hypotension Status: Acute (3) Hypomagnesemia Status: Acute (4) Lactic acidosis Status: Acute (5) Pulmonary embolism Status: Acute (6) Suspected COVID-19 virus infection Status: Acute (7) Urinary tract infection Status: Acute Dyspnea in setting of PE; CTA with extensive bilateral PE. Treated with anticoagulation. Looks and feels significantly better today. Echocardiogram with an ejection fraction of 55 to 60%. There is no right side enlargement. Pulmonary pressure is 19 mmHg. We will continue to increase activities. Anticoagulation as per the pulmonary service. Hypercoagulability work-up as outpatient. Mild troponin elevation; type II demand ischemia in the setting of a large PE. Continue as above. Hypokalemia, hypomagnesemia; replaced Leukocytosis, lactic acidosis Oral contraceptive use. Discontinued. Comment Review of Relevant I have reviewed the following items connie (where applicable) has been applied. Labs Laboratory Tests Test 10/05/19 07:20 10/05/19 07:54 10/05/19 08:00 10/05/19 08:10 White Blood Count 12.3 x10^3/uL (4.0-11.0) Red Blood Count 3.98 x10^6/uL (3.50-5.40) Hemoglobin 11.8 g/dL (12.0-15.5) Hematocrit 35.2 % (36.0-47.0) Mean Corpuscular Volume 88 fL (79-100) Mean Corpuscular Hemoglobin 30 pg (25-35) Mean Corpuscular Hemoglobin Concent 33 g/dL (31-37) Red Cell Distribution Width 12.2 % (11.5-14.5) Platelet Count 140 x10^3/uL (140-400) Neutrophils (%) (Auto) 73 % (31-73) Lymphocytes (%) (Auto) 21 % (24-48) Monocytes (%) (Auto) 5 % (0-9) Eosinophils (%) (Auto) 1 % (0-3) Basophils (%) (Auto) 1 % (0-3) Neutrophils # (Auto) 9.0 x10^3/uL (1.8-7.7) Lymphocytes # (Auto) 2.5 x10^3/uL (1.0-4.8) Monocytes # (Auto) 0.6 x10^3/uL (0.0-1.1) Eosinophils # (Auto) 0.1 x10^3/uL (0.0-0.7) Basophils # (Auto) 0.1 x10^3/uL (0.0-0.2) Sodium Level 141 mmol/L (136-145) Potassium Level 3.4 mmol/L (3.5-5.1) Chloride Level 106 mmol/L (98-107) Carbon Dioxide Level 27 mmol/L (21-32) Anion Gap 8 (6-14) Blood Urea Nitrogen 11 mg/dL (7-20) Creatinine 1.1 mg/dL (0.6-1.0) Estimated GFR (Cockcroft-Gault) 57.9 BUN/Creatinine Ratio 10 (6-20) Glucose Level 118 mg/dL (70-99) Calcium Level 7.5 mg/dL (8.5-10.1) Magnesium Level 1.5 mg/dL (1.8-2.4) Ferritin 83 ng/mL (8-252) Total Bilirubin 0.3 mg/dL (0.2-1.0) Aspartate Amino Transf (AST/SGOT) 13 U/L (15-37) Alanine Aminotransferase (ALT/SGPT) 17 U/L (14-59) Alkaline Phosphatase 59 U/L (46-116) Lactate Dehydrogenase 151 U/L (81-234) Creatine Kinase 27 U/L (26-192) Creatine Kinase MB (Mass) 0.5 ng/mL (0.0-3.6) Creatine Kinase MB Relative Index % (0-4) Troponin I Quantitative 0.100 ng/mL (0.000-0.055) MV-Kre-B-Type Natriuretic Peptide 76 pg/mL (0-124) Total Protein 5.0 g/dL (6.4-8.2) Albumin 2.4 g/dL (3.4-5.0) Albumin/Globulin Ratio 0.9 (1.0-1.7) Triglycerides Level 217 mg/dL (0-150) Cholesterol Level 138 mg/dL (0-200) LDL Cholesterol, Calculated 54 mg/dL (0-100) VLDL Cholesterol, Calculated 43 mg/dL (0-40) Non-HDL Cholesterol Calculated 97 mg/dL (0-129) HDL Cholesterol 41 mg/dL (40-60) Cholesterol/HDL Ratio 3.4 Thyroid Stimulating Hormone (TSH) 4.811 uIU/mL (0.358-3.74) Urine Collection Type Unknown Urine Color Blank Urine Clarity Clear Urine pH 5.5 (<5.0-8.0) Urine Specific [place] 1.025 (1.000-1.030) Urine Protein Negative mg/dL (NEG-TRACE) Urine Glucose (UA) Negative mg/dL (NEG) Urine Ketones (Stick) Negative mg/dL (NEG) Urine Blood Negative (NEG) Urine Nitrite Positive (NEG) Urine Bilirubin Negative (NEG) Urine Urobilinogen Dipstick 0.2 mg/dL (0.2 mg/dL) Urine Leukocyte Esterase Negative (NEG) Urine RBC 0 /HPF (0-2) Urine WBC 5-10 /HPF (0-4) Urine Squamous Epithelial Cells Occ /LPF Urine Bacteria Many /HPF (0-FEW) Lactic Acid Level 2.1 mmol/L (0.4-2.0) Bedside Urine HCG, Qualitative Hcg negative (Negative) Test 10/05/19 08:44 10/05/19 12:15 10/05/19 15:25 10/06/19 04:10 Coronavirus (COVID-19)(PCR) Not detected (NOT DETECT.) Lactic Acid Level 2.3 mmol/L (0.4-2.0) Troponin I Quantitative 0.462 ng/mL (0.000-0.055) 0.398 ng/mL (0.000-0.055) White Blood Count 7.4 x10^3/uL (4.0-11.0) Red Blood Count 3.84 x10^6/uL (3.50-5.40) Hemoglobin 11.7 g/dL (12.0-15.5) Hematocrit 33.8 % (36.0-47.0) Mean Corpuscular Volume 88 fL (79-100) Mean Corpuscular Hemoglobin 31 pg (25-35) Mean Corpuscular Hemoglobin Concent 35 g/dL (31-37) Red Cell Distribution Width 12.3 % (11.5-14.5) Platelet Count 161 x10^3/uL (140-400) Neutrophils (%) (Auto) 45 % (31-73) Lymphocytes (%) (Auto) 46 % (24-48) Monocytes (%) (Auto) 6 % (0-9) Eosinophils (%) (Auto) 2 % (0-3) Basophils (%) (Auto) 1 % (0-3) Neutrophils # (Auto) 3.3 x10^3/uL (1.8-7.7) Lymphocytes # (Auto) 3.4 x10^3/uL (1.0-4.8) Monocytes # (Auto) 0.5 x10^3/uL (0.0-1.1) Eosinophils # (Auto) 0.2 x10^3/uL (0.0-0.7) Basophils # (Auto) 0.0 x10^3/uL (0.0-0.2) Sodium Level 141 mmol/L (136-145) Potassium Level 4.1 mmol/L (3.5-5.1) Chloride Level 109 mmol/L (98-107) Carbon Dioxide Level 25 mmol/L (21-32) Anion Gap 7 (6-14) Blood Urea Nitrogen 6 mg/dL (7-20) Creatinine 1.0 mg/dL (0.6-1.0) Estimated GFR (Cockcroft-Gault) 64.7 BUN/Creatinine Ratio 6 (6-20) Glucose Level 92 mg/dL (70-99) Calcium Level 7.6 mg/dL (8.5-10.1) Total Bilirubin 0.2 mg/dL (0.2-1.0) Aspartate Amino Transf (AST/SGOT) 13 U/L (15-37) Alanine Aminotransferase (ALT/SGPT) 15 U/L (14-59) Alkaline Phosphatase 64 U/L (46-116) Total Protein 5.0 g/dL (6.4-8.2) Albumin 2.3 g/dL (3.4-5.0) Albumin/Globulin Ratio 0.9 (1.0-1.7) Laboratory Tests Test 10/05/19 15:25 10/06/19 04:10 Troponin I Quantitative 0.398 ng/mL (0.000-0.055) White Blood Count 7.4 x10^3/uL (4.0-11.0) Red Blood Count 3.84 x10^6/uL (3.50-5.40) Hemoglobin 11.7 g/dL (12.0-15.5) Hematocrit 33.8 % (36.0-47.0) Mean Corpuscular Volume 88 fL (79-100) Mean Corpuscular Hemoglobin 31 pg (25-35) Mean Corpuscular Hemoglobin Concent 35 g/dL (31-37) Red Cell Distribution Width 12.3 % (11.5-14.5) Platelet Count 161 x10^3/uL (140-400) Neutrophils (%) (Auto) 45 % (31-73) Lymphocytes (%) (Auto) 46 % (24-48) Monocytes (%) (Auto) 6 % (0-9) Eosinophils (%) (Auto) 2 % (0-3) Basophils (%) (Auto) 1 % (0-3) Neutrophils # (Auto) 3.3 x10^3/uL (1.8-7.7) Lymphocytes # (Auto) 3.4 x10^3/uL (1.0-4.8) Monocytes # (Auto) 0.5 x10^3/uL (0.0-1.1) Eosinophils # (Auto) 0.2 x10^3/uL (0.0-0.7) Basophils # (Auto) 0.0 x10^3/uL (0.0-0.2) Sodium Level 141 mmol/L (136-145) Potassium Level 4.1 mmol/L (3.5-5.1) Chloride Level 109 mmol/L (98-107) Carbon Dioxide Level 25 mmol/L (21-32) Anion Gap 7 (6-14) Blood Urea Nitrogen 6 mg/dL (7-20) Creatinine 1.0 mg/dL (0.6-1.0) Estimated GFR (Cockcroft-Gault) 64.7 BUN/Creatinine Ratio 6 (6-) Glucose Level 92 mg/dL (70-99) Calcium Level 7.6 mg/dL (8.5-10.1) Total Bilirubin 0.2 mg/dL (0.2-1.0) Aspartate Amino Transf (AST/SGOT) 13 U/L (15-37) Alanine Aminotransferase (ALT/SGPT) 15 U/L (14-59) Alkaline Phosphatase 64 U/L (46-116) Total Protein 5.0 g/dL (6.4-8.2) Albumin 2.3 g/dL (3.4-5.0) Albumin/Globulin Ratio 0.9 (1.0-1.7) Microbiology 10/05/19 Blood Culture - Preliminary, Resulted NO GROWTH AFTER 1 DAY 10/05/19 Urine Culture - Preliminary, Resulted Medications Current Medications Sodium Chloride 1,000 ml @ 1,000 mls/hr 1X ONCE IV Last administered on 10/05/19at 07:28; Start 10/05/19 at 07:00; Stop 10/05/19 at 07:59; Status DC Aspirin (Snapguide Aspirin) 325 mg 1X ONCE PO Last administered on 10/05/19at 08:41; Start 10/05/19 at 08:30; Stop 10/05/19 at 08:31; Status DC Magnesium Sulfate 50 ml @ 25 mls/hr 1X ONCE IV Last administered on 10/05/19at 09:08; Start 10/05/19 at 08:30; Stop 10/05/19 at 10:29; Status DC Iohexol (Omnipaque 350 Mg/ml) 90 ml 1X ONCE IV Last administered on 10/05/19at 08:53; Start 10/05/19 at 08:30; Stop 10/05/19 at 08:31; Status DC Info (CONTRAST GIVEN -- Rx MONITORING) 1 each PRN DAILY PRN MC SEE COMMENTS; Start 10/05/19 at 08:30; Stop 10/07/19 at 08:29 Piperacillin Sod/ Tazobactam Sod 4.5 gm/Sodium Chloride 100 ml @ 200 mls/hr 1X ONCE IV Last administered on 10/05/19at 09:21; Start 10/05/19 at 09:30; Stop 10/05/19 at 09:59; Status DC Enoxaparin Sodium (Lovenox 100mg Syringe) 100 mg 1X ONCE SQ Last administered on 10/05/19at 09:39; Start 10/05/19 at 09:15; Stop 10/05/19 at 09:16; Status DC Ondansetron HCl (Zofran) 4 mg PRN Q8HRS PRN IV NAUSEA/VOMITING; Start 10/05/19 at 09:30; Stop 10/06/19 at 09:29; Status DC Potassium Chloride (Klor-Con) 40 meq 1X ONCE PO Last administered on 10/05/19at 14:43; Start 10/05/19 at 14:00; Stop 10/05/19 at 14:01; Status DC Enoxaparin Sodium (Lovenox Per Pharmacy Treatment Dosing) 1 each PRN DAILY PRN MC SEE COMMENTS; Start 10/05/19 at 15:45; Stop 10/06/19 at 09:42; Status DC Enoxaparin Sodium (Lovenox 100mg Syringe) 100 mg Q12HR SQ Last administered on 10/06/19at 08:28; Start 10/05/19 at 21:00; Stop 10/06/19 at 09:42; Status DC Levofloxacin/ Dextrose 100 ml @ 100 mls/hr Q24H IV Last administered on 10/05/19at 20:16; Start 10/05/19 at 21:00 Apixaban (Eliquis) 10 mg BID PO Last administered on 10/06/19at 13:16; Start 10/06/19 at 13:00; Stop 10/12/19 at 21:01 Apixaban (Eliquis) 5 mg BID PO ; Start 10/13/19 at 09:00 Active Scripts Active Vitals/I & O Vital Sign - Last 24 Hours 10/05/19 10/05/19 10/06/19 10/06/19 19:00 23:00 03:00 07:00 Temp 98.6 98.4 97.8 98.0 98.6 98.4 97.8 98.0 Pulse 90 92 75 77 Resp 17 18 17 16 B/P (MAP) 102/65 (77) 110/68 (82) 100/61 (74) 92/56 (68) Pulse Ox 97 97 98 96 O2 Delivery Room Air Room Air Room Air 10/06/19 10/06/19 08:30 11:26 Temp 98.5 98.5 Pulse 74 Resp 15 B/P (MAP) 94/62 (73) Pulse Ox 97 O2 Delivery Room Air Room Air Intake and Output 10/05/19 10/05/19 10/06/19 15:00 23:00 07:00 Intake Total 1050 ml 1000 ml 240 ml Balance 1050 ml 1000 ml 240 ml MELISSA SOLITARIO MD Oct 06, 2019 14:59
--- NOTE | 2019-10-06 15:59 | NUR ---
Discharge Note: [facility] Discharge instructions and discharge home medications reviewed with Patient and a copy given. All questions have been answered and understanding verbalized. The following instructions and handouts were given: discharge instructions, new prescription, education and follow up recommendations. Discontinued lines and drains: Peripheral IV's discontinued intact. Patient discharged to Home or Self Care with Parent via Wheelchair off unit by this RN.
[2019-10-13] MEDS ORDERED: APIXABAN 5 MG TABLET. PO SCH (09:00)
== END 2019-10-06 16:03 | disposition home or self-care (01) | DRG 871 ==
LOC: ER 06:43 → ED HOLD 09:20 → 6 SOUTH 14:04
PROVIDERS: ADMIT Internal Medicine; ATTEND Internal Medicine
DX: A41.9 Sepsis, unspecified organism (principal); I26.99 Other pulmonary embolism without acute cor pulmonale; N39.0 Urinary tract infection, site not specified; E87.6 Hypokalemia; E83.42 Hypomagnesemia; J45.909 Unspecified asthma, uncomplicated; M17.12 Unilateral primary osteoarthritis, left knee; Z20.828 Contact with and (suspected) exposure to other viral communicable diseases; Z88.8 Allergy status to other drugs, medicaments and biological substances; R79.89 Other specified abnormal findings of blood chemistry; Z79.3 Long term (current) use of hormonal contraceptives
CPT/HCPCS: 36415; 71275; 80053; 80061; 81001; 81025; 82553; 82728; 83605; 83615; 83735; 83880; 84443; 84484; 85025; 87040; 87086; 93005; 93306; 93971; 96361; 96365; 96366; 96368; 96372; J1650; J1956; J2543; J3475; J7030; Q9967; 99285-25; G0378; U0003-CS

== ENCOUNTER → 2019-10-13 | Outpatient (CLI) | payer OTHER ==
[2019-10-06 14:46] VITALS: BP 95/52
== END ==
LOC: LAB 11:48
PROVIDERS: ATTEND Internal Medicine Critical Care Medicine
DX: I26.99 Other pulmonary embolism without acute cor pulmonale (principal)
CPT/HCPCS: 81241; 86147

== ENCOUNTER → 2019-11-27 | Outpatient (CLI) | payer OTHER ==
[~2019-11-27] MED LIST changes: +CONTRAST GIVEN. MC PRN; +IOHEXOL 350 MG/ML 100 ML VIAL. IV ONE
--- NOTE | 2019-11-27 13:46 | RAD ---
CTA chest with contrast dated 11/27/2019. Comparison made to 10/05/2019. CLINICAL INDICATION: Follow-up pulmonary embolus. TECHNIQUE: Contiguous axial imaging the chest performed following the intravenous and demonstration of 100 cc Omnipaque 350. Study was performed as dedicated PE protocol with thin cut coronal MIPS 3-D reconstruction. One or more of the following individualized dose reduction techniques were utilized for this examination: 1. Automated exposure control 2. Adjustment of the mA and/or kV according to patient size 3. Use of iterative reconstruction technique. FINDINGS: Contrast bolus is adequate. No evidence of central, lobar or segmental pulmonary embolus. The previous described multifocal filling defects have resolved. Main pulmonary artery is normal in caliber. Heart size is within normal limits. No pericardial effusion. No mediastinal, hilar or axillary lymphadenopathy. Borderline enlarged right hilar lymph nodes, unchanged. Thyroid gland is unremarkable. Central airways are patent. Lungs are clear. No consolidation or pleural effusion. No pneumothorax. Limited images of upper abdomen unremarkable. No acute bony abnormality. IMPRESSION: 1. No evidence of central, lobar or segmental pulmonary embolus. The previously described multifocal PE has resolved in the interim. 2. Clear lungs. 3. Borderline enlarged right hilar lymph nodes, nonspecific but unchanged. Electronically signed by: Wade Powell MD (11/27/2019 1:44 PM) [facility]
== END | disposition home or self-care (01) ==
LOC: CT 09:32
PROVIDERS: ATTEND Internal Medicine Critical Care Medicine
DX: I26.99 Other pulmonary embolism without acute cor pulmonale (principal)
CPT/HCPCS: 71275; Q9967